=== PATIENT | female | born 1965 | race Two or more races ===

== ENCOUNTER 2023-05-27 05:36 | Day surgery (SDC) | payer OTHER ==
[2023-05-21 16:01] LABS: BASOPHILS % (AUTO) 0.2 % (0-1); EOSINOPHILS # (AUTO) 0.1 X10'3 (0-0.9); EOSINOPHILS % (AUTO) 1.7 % (0-6); LYMPHOCYTES # (AUTO) 1.5 X10'3 (1.1-4.8); LYMPHOCYTES % (AUTO) 27.2 % (21-51); MEAN CORPUSCULAR HEMOGLOBIN 27.8 PG (27.0-31.0); MEAN CORPUSCULAR HGB CONC 33.7 g/dL (33.0-36.5); MEAN CORPUSCULAR VOLUME 82.6 FL (78-98); MEAN PLATELET VOLUME 8.5 FL (7.4-10.4); MONOCYTES # (AUTO) 0.4 X10'3 (0-0.9); MONOCYTES % (AUTO) 7.6 % (2-12); NEUTROPHILS # (AUTO) 3.5 X10'3 (1.8-7.7); NEUTROPHILS % (AUTO) 63.3 % (42-75); PRE OP HEMATOCRIT 40.5 % (35.0-45.0); PRE OP HEMOGLOBIN 13.6 g/dL (12.0-16.0); PRE OP PLATELET COUNT 220 X10'3 (140-440); PRE OP WHITE BLOOD COUNT 5.5 10'3 (4.8-10.8); RED CELL DISTRIBUTION WIDTH 14.4 % (11.5-14.5)
[2023-05-21 16:06] LABS: ALBUMIN 3.8 G/DL (3.4-5.0); ALBUMIN/GLOBULIN RATIO 1.1 (1.1-1.5); ALKALINE PHOSPHATASE 100 IU/L (46-116); BLOOD UREA NITROGEN 16 MG/DL (7-18); BUN/CREATININE RATIO 22.5 (10.0-20.0); CALCIUM 9.5 MG/DL (8.5-10.1); CHLORIDE 105 MMOL/L (99-107); CREATININE 0.71 MG/DL (0.40-0.90); PRE OP ALT 26 U/L (30-65); PRE OP ANION GAP 6 (8-16); PRE OP AST 19 U/L (10-37); PRE OP BILIRUB, TOTAL 0.2 MG/DL (0.0-1.0); PRE OP GLUCOSE 107 MG/DL (70-104); PRE OP POTASSIUM 3.9 MMOL/L (3.4-5.1); PRE OP SODIUM 140 MMOL/L (135-145); TOTAL CARBON DIOXIDE 29.4 MMOL/L (24-32); TOTAL PROTEIN 7.4 G/DL (6.4-8.2); eGFR 85 ML/MIN
[2023-05-27] VITALS (18 sets, daily range): BP systolic 106–132; BP diastolic 75–98; PULSE 67–91; RESP 13–22; TEMP 98.1; O2SAT 93–99
[~2023-05-27] VITALS: Ht 162.6 cm; Wt 81.6 kg
[~2023-05-27 05:36] MED LIST: NO HOME MEDS; cefazolin 2gm/D5W 100mL 100 ML IV ONE; famotidine 20mg tablet PO ONE; ringers solution, lacted 1,000 ML IV SCH; tranexamic acid 650mg tablet PO ONE; vancomycin 1,500 MG in NS 300ml IV soln IV ONE
--- NOTE | 2023-05-27 07:15 | NUR ---
PT WAS ABLE TO COMPLETE ALL 5 SHOWERS AND OINTMENT ORDER, REVIEWED ALL PROVIDED EDUCATION-ALL QUESTIONS ANSWERED, CSM PRESENT TO BILAT UPPER EXTREMITIES.
[2023-05-27] MEDS ORDERED: ROPIVAcaine 0.5% (5mg/ml) 30ml vial ONE ×2 (08:02→09:52)
[2023-05-27] MEDS ORDERED: ketorolac trometh. 30mg/ml inj. ONE (08:02)
[2023-05-27] MEDS ORDERED: fentaNYL/PF 50MCG/1 ML 2ML syringe ONE ×2 (08:48→09:19)
[2023-05-27] MEDS ORDERED: midazolam 1 mg/ML 2ml injection ONE (08:49)
[2023-05-27] MEDS ORDERED: sevoflurane 250ml liquid IH ONE (08:49)
[2023-05-27] MEDS ORDERED: ROPIVAcaine 0.2%/PF PUMP/bolus 545 ML INTERSCALE SCH (09:25)
[2023-05-27] MEDS ORDERED: proCHLORperazine 10 MG/2 ml inj IV PRN (09:25)
[2023-05-27] MEDS ORDERED: ringers solution, lacted 1,000 ML IV SCH (09:25)
[2023-05-27] MEDS ORDERED: meperidine/PF 25mg/ml syringe IV PRN ×3 (09:25)
[2023-05-27] MEDS ORDERED: ROPIVAcaine 0.2% (10 MG/5 ML) BOLUS INJECTION INTERSCALE PRN (09:25)
[2023-05-27] MEDS ORDERED: morphine 4 MG/ML inj SYRINge IV PRN (09:25)
[2023-05-27] MEDS ORDERED: morphine 2 MG/ML inj. syringe IV PRN (09:25)
[2023-05-27] MEDS ORDERED: ondansetron/PF 4mg/2ml inj IV PRN (09:25)
[2023-05-27] MEDS ORDERED: HYDROcodone/acetaminophen 10/325mg tab PO PRN (09:30)
[2023-05-27] MEDS ORDERED: dexamethasone sod phosphate 4mg/ml inj. ONE (09:52)
[2023-05-27] MEDS ORDERED: acetaminophen 1,000mg/100ml IV 100 ML IV ONE (09:52)
[2023-05-27] MEDS ORDERED: ondansetron/PF 4mg/2ml inj ONE (09:52)
[2023-05-27] MEDS ORDERED: neostigmine methylsulfate 1 MG/ML 10ml vial ONE (09:52)
[2023-05-27] MEDS ORDERED: glycopyrrolate 0.2mg/ml inj ONE (09:52)
[2023-05-27] MEDS ORDERED: propofol inj 20 ML IV ONE (09:52)
[2023-05-27] MEDS ORDERED: rocuronium 10mg/ml inj IV ONE (09:52)
[2023-05-27] MEDS ORDERED: ePHEDrine 50MG/ML INJ. ONE (09:56)
--- NOTE | 2023-05-27 10:26 | NUR ---
Received from OR via [facility] BED TO RR 8, accompanied by Anesthesiologist JORGE L and report given by Anesthesiologist. PATIENT A&OX4, DENIES PAIN, V/S WNL, SCD ON , PIV 20G R WRIST, DRESSING SHOULDER WRAP TO LEFT SIDE CDI AND COLD POWDER PACK ON. LR RUNNING THRU PIV. WILL CONTINUE TO ASSESS. Addendum: 05/27/23 at 1047 by Tana Roberts RN ON-Q READY. WILL ATTACH ONCE RECEIVED FROM PHARMACY
--- NOTE | 2023-05-27 12:20 | NUR ---
PER MD THIBODEAUX, PT IS OK TO GO HOME TODAY IF PATIENT HAS MET ALL PACU CRITERIA. PT & EVAL ORDER TO CLEAR PATIENT WILL BE ENTERED. PAGED PT
--- NOTE | 2023-05-27 13:36 | NUR ---
PT IS STABLE FOR D/C PER MD ORDERS. ALL D/C PPWK WAS REV'D WITH PATIENT. PHYSICAL THERAPY EVALUATED PATIENT AND GAVE ADDITIONAL WRITTEN EDUCATION, ON-Q INFORMATION GIVEN WELL. PT VERBALIZED UNDERSTANDING OF ALL. PT IS NOT C/O PAIN OR NAUSEA. SHE WAS ABLE TO AMBULATE WELL AND VOIDED X 1. PT WAS ABLE TO GET DRESSED WITH MINIMAL ASSISTANCE. LEFT SHOULDER IN SLING AND NEW POWDER PACK APPLIED, PT HAS ON-Q TRIGGER IN HAND. PT WAS WHEELED DOWN TO PRIVATE VEHICLE WHERE WAS WAITING. SHE WAS TRANSFERRED INTO VEHICLE WITHOUT INCIDENT.
== END 2023-05-27 13:36 | disposition home or self-care (01) ==
LOC: UNDOADMIN 05:36 → PAS IN 05:36 → SSTAY O 05:36 → EDSTATUS 07:30 → SSTAY O 13:36 → UNDODISIN 13:36
PROVIDERS: ATTEND Orthopaedic Surgery
DX: M19.012 Primary osteoarthritis, left shoulder (principal); M75.22 Bicipital tendinitis, left shoulder; G89.18 Other acute postprocedural pain; K21.9 Gastro-esophageal reflux disease without esophagitis; E66.9 Obesity, unspecified; Z68.31 Body mass index [BMI] 31.0-31.9, adult; Z98.890 Other specified postprocedural states; Z88.2 Allergy status to sulfonamides; Z72.89 Other problems related to lifestyle; Z79.899 Other long term (current) drug therapy
CPT/HCPCS: 23430; 23472; 36415; 64416; 80053; 82948; 85025; 87081; 97110; 97161; C1713; C1776; J0131; J0690; J1100; J1885; J2250; J2405; J2704; J2710; J2795; J3010; J3370; J3490; J7030; J7120; Z7506; Z7508; Z7512; 97530; A4565; A4618; A7000